=== PATIENT | male | born 1985 | race Caucasian/White ===

== ENCOUNTER → 2020-10-06 | Outpatient (REF) | payer OTHER, SELFPAY | LOC: M LAB REF 15:07 | PROVIDERS: ATTEND Physician Assistant | DX: Z11.59 Encounter for screening for other viral diseases (principal) ==

== ENCOUNTER → 2020-11-14 | Outpatient (CLI) | payer SELFPAY | LOC: M LABSMTC 14:19 | PROVIDERS: ATTEND Pediatrics | DX: Z20.822 Contact with and (suspected) exposure to COVID-19 (principal) ==